=== PATIENT | female | born 1965 | race Caucasian/White ===

== ENCOUNTER 2017-10-24 10:09 | Emergency (ER) | payer OTHER ==
[~2017-10-24] VITALS: Ht 154.9 cm; Wt 53.1 kg
[2017-10-24] MEDS ORDERED: SODIUM CHLORIDE FLUSH 10ML SYR IVF ONE (10:30)
[2017-10-24] MEDS ORDERED: SODIUM CHLORIDE 0.9% 1,000ML IVBOLUS ONE (10:30)
[2017-10-24] MEDS ORDERED: MORPHINE SULFATE 4 MG/ML, 1ML IVPush PRN (10:30)
[2017-10-24] MEDS ORDERED: ONDANSETRON ODT 4 MG PO ONE (10:30)
[2017-10-24] MEDS ORDERED: MORPHINE SULFATE 4 MG/ML, 1ML ONE (10:50)
[2017-10-24] MEDS ORDERED: ONDANSETRON ODT 4 MG ONE (10:50)
[2017-10-24 10:51] LABS: BASOPHILS # (AUTO) 0.02 x10^3/uL (0-0.1); BASOPHILS % (AUTO) 0 % (0-1); EOSINOPHILS # (AUTO) 0.11 x10^3/uL (0-0.4); EOSINOPHILS % (AUTO) 2 % (1-7); LYMPHOCYTES # (AUTO) 1.43 x10^3/uL (1-3.4); LYMPHOCYTES % (AUTO) 19 % (22-44); MD NO; MEAN CORPUSCULAR HEMOGLOBIN 29.5 pg (27.0-34.8); MEAN CORPUSCULAR HGB CONC 33.5 g/dL (32.4-35.8); MEAN PLATELET VOLUME 8.5 fL (7.4-10.4); MONOCYTES # (AUTO) 0.52 x10^3/uL (0.2-0.8); MONOCYTES % (AUTO) 7 % (2-9); NEUTROPHILS % (AUTO) 73 % (42-75); PLATELET COUNT 290 x10^3/uL (130-400); RED BLOOD COUNT 4.37 x10^6/uL (3.82-5.3); RED CELL DISTRIBUTION WIDTH 12.9 % (9.6-15.2)
[2017-10-24 10:57] LABS: MICROSCOPIC AUTO
[2017-10-24 11:03] LABS: CULTURE INDICATED? NO
[2017-10-24 11:03] LABS: ALANINE AMINOTRANSFERASE 47 U/L (12-78); ALBUMIN 4.3 g/dL (3.4-5.0); ANION GAP 10 mmol/L (5-15); CALCIUM 9.2 mg/dL (8.5-10.1); CHLORIDE 107 mmol/L (98-107); CREATININE 0.75 mg/dL (0.55-1.02)
[2017-10-24 11:05] LABS: ALKALINE PHOSPHATASE 80 U/L (45-117); BILIRUBIN,TOTAL 0.6 mg/dL (0.2-1.0); TOTAL PROTEIN 7.8 g/dL (6.4-8.2)
[2017-10-24] MEDS ORDERED: OMNIPAQUE 350 MG/ML, 100ML BOTTLE ONE (11:30)
[2017-10-24] MEDS ORDERED: MAALOX/HYOSCYAMINE/LIDOCAINE 45 ML BTL PO ONE (12:00)
[2017-10-24] MEDS ORDERED: FAMOTIDINE 20 MG TABLET PO ONE (12:00)
[2017-10-24] MEDS ORDERED: MAALOX/HYOSCYAMINE/LIDOCAINE 45 ML BTL ONE (12:05)
[2017-10-24] MEDS ORDERED: FAMOTIDINE 20 MG TABLET ONE (12:05)
[2017-10-24 12:41] VITALS: BP 144/74
== END 2017-10-24 12:43 | disposition home or self-care (01) ==
LOC: ED 11:37
DX: K29.00 Acute gastritis without bleeding (principal)
CPT/HCPCS: 36415; 74177; 80053; 81001; 83690; 85025; 96374; 99285; J7030; Q0162; Q9967

== ENCOUNTER 2017-11-01 20:00 | Emergency (ER) | payer OTHER ==
[~2017-11-01] VITALS: Ht 154.9 cm; Wt 53.5 kg
[2017-11-01 20:04] VITALS: BP 136/83
[2017-11-01 21:02] LABS: MICROSCOPIC INDICATED
[2017-11-01 21:03] LABS: CULTURE INDICATED? YES
[2017-11-01 21:13] LABS: BASOPHILS # (AUTO) 0.02 x10^3/uL (0-0.1); BASOPHILS % (AUTO) 0 % (0-1); EOSINOPHILS % (AUTO) 2 % (1-7); LYMPHOCYTES % (AUTO) 13 % (22-44); MD NO; MEAN CORPUSCULAR HEMOGLOBIN 30.2 pg (27.0-34.8); MEAN CORPUSCULAR HGB CONC 34.2 g/dL (32.4-35.8); MEAN CORPUSCULAR VOLUME 88.6 fL (80-100); MEAN PLATELET VOLUME 8.2 fL (7.4-10.4); MONOCYTES # (AUTO) 0.86 x10^3/uL (0.2-0.8); MONOCYTES % (AUTO) 6 % (2-9); NEUTROPHILS # (AUTO) 10.87 x10^3/uL (1.8-6.8); NEUTROPHILS % (AUTO) 80 % (42-75); PLATELET COUNT 359 x10^3/uL (130-400); RED BLOOD COUNT 4.08 x10^6/uL (3.82-5.3); RED CELL DISTRIBUTION WIDTH 12.4 % (9.6-15.2)
[2017-11-01 21:19] LABS: ALANINE AMINOTRANSFERASE 32 U/L (12-78); ALBUMIN 3.8 g/dL (3.4-5.0); ANION GAP 8 mmol/L (5-15); CALCIUM 8.9 mg/dL (8.5-10.1); CHLORIDE 104 mmol/L (98-107); CREATININE 0.78 mg/dL (0.55-1.02)
[2017-11-01 21:24] LABS: ALKALINE PHOSPHATASE 76 U/L (45-117); BILIRUBIN,TOTAL 0.4 mg/dL (0.2-1.0); TOTAL PROTEIN 7.4 g/dL (6.4-8.2)
[2017-11-01] MEDS ORDERED: CEFTRIAXONE 1,000 MG ONE (21:46)
[2017-11-01] MEDS ORDERED: CEFTRIAXONE 1,000 MG IM ONE (22:00)
== END 2017-11-01 21:59 | disposition home or self-care (01) ==
LOC: ED 21:01
DX: N30.01 Acute cystitis with hematuria (principal)
CPT/HCPCS: 36415; 80053; 81001; 84703; 85025; 87086; 96372; 99284; J0696

== ENCOUNTER → 2017-12-28 | Outpatient (CLI) | payer OTHER | END | disposition home or self-care (01) | LOC: CFH 15:21 | PROVIDERS: ATTEND Nurse Practitioner | DX: E04.9 Nontoxic goiter, unspecified (principal) | CPT/HCPCS: 76536 ==

== ENCOUNTER 2018-02-15 09:10 | Inpatient (IN) | payer OTHER ==
[~2018-02-15] VITALS: Ht 154.9 cm; Wt 55.3 kg
[2018-02-15] MEDS ORDERED: FAMOTIDINE 20 MG/2 ML ONE (09:57)
[2018-02-15] MEDS ORDERED: PROMETHAZINE 25 MG/ML, 1ML ONE (09:57)
[2018-02-15] MEDS ORDERED: MORPHINE SULFATE 4 MG/ML, 1ML ONE ×2 (09:57→10:29)
[2018-02-15] MEDS ORDERED: SODIUM CHLORIDE FLUSH 10ML SYR IVF ONE (10:00)
[2018-02-15] MEDS ORDERED: FAMOTIDINE 20 MG/2 ML IVP ONE (10:00)
[2018-02-15] MEDS ORDERED: PROMETHAZINE 25 MG/ML, 1ML IM ONE (10:00)
[2018-02-15] MEDS ORDERED: MORPHINE SULFATE 4 MG/ML, 1ML IVPush ONE ×2 (10:00→10:30)
[2018-02-15 10:09] LABS: BASOPHILS # (AUTO) 0.04 x10^3/uL (0-0.1); BASOPHILS % (AUTO) 1 % (0-1); EOSINOPHILS # (AUTO) 0.02 x10^3/uL (0-0.4); EOSINOPHILS % (AUTO) 0 % (1-7); LYMPHOCYTES % (AUTO) 12 % (22-44); MD NO; MEAN CORPUSCULAR HGB CONC 33.2 g/dL (32.4-35.8); MEAN CORPUSCULAR VOLUME 87.2 fL (80-100); MEAN PLATELET VOLUME 8.4 fL (7.4-10.4); MONOCYTES # (AUTO) 0.41 x10^3/uL (0.2-0.8); MONOCYTES % (AUTO) 6 % (2-9); NEUTROPHILS # (AUTO) 5.67 x10^3/uL (1.8-6.8); NEUTROPHILS % (AUTO) 82 % (42-75); PLATELET COUNT 331 x10^3/uL (130-400); RED BLOOD COUNT 4.38 x10^6/uL (3.82-5.3); RED CELL DISTRIBUTION WIDTH 12.6 % (9.6-15.2)
[2018-02-15 10:14] LABS: ALBUMIN 4.3 g/dL (3.4-5.0); ANION GAP 9 mmol/L (5-15); CHLORIDE 105 mmol/L (98-107)
[2018-02-15 10:20] LABS: ALANINE AMINOTRANSFERASE 23 U/L (12-78); ALKALINE PHOSPHATASE 75 U/L (45-117); BILIRUBIN,TOTAL 0.9 mg/dL (0.2-1.0); CREATININE 0.78 mg/dL (0.55-1.02); TOTAL PROTEIN 7.6 g/dL (6.4-8.2)
[2018-02-15] MEDS ORDERED: SODIUM CHLORIDE 0.9% 1,000ML IVBOLUS ONE (10:30)
--- NOTE | 2018-02-15 10:41 | NUR ---
LATE ENTRY FOR 10:00 PT PRESENTED TO ED WITH MIDEPIGASTRIC PAIN FOR A FEW DAYS. PT WAS DIAGNOSED WITH HPYLORI 1 WEEK AGO. PT ON MEDICATIONS FOR H PYLORI. PT WITH INCREASING ABD PAIN. ORDERS RECEIVED AND MEDS GIVEN.
--- NOTE | 2018-02-15 10:42 | NUR ---
US AT BEDSIDE. PT WANTING ONLY 2MG MORPHINE INSTEAD OF THE SECOND DOSE OF 2 MG MORPHINE. PT VSS
[2018-02-15 10:54] LABS: CULTURE INDICATED? YES; MICROSCOPIC INDICATED
[2018-02-15] MEDS ORDERED: CLAR500T9 PO (11:22)
[2018-02-15] MEDS ORDERED: METR-142 PO (11:23)
[2018-02-15] MEDS ORDERED: OMEP-110 PO (11:23)
[2018-02-15] MEDS ORDERED: SUCR1TAB PO (11:24)
[2018-02-15] MEDS ORDERED: ENALAPRILAT 1.25 MG/ML, 2ML IVPush PRN (11:30)
[2018-02-15] MEDS ORDERED: MAALOX/HYOSCYAMINE/LIDOCAINE 45 ML BTL PO ONE (11:30)
[2018-02-15] MEDS ORDERED: ONDANSETRON 2MG/ML, 2ML IVPush PRN (11:30)
[2018-02-15] MEDS ORDERED: ACETAMINOPHEN 325 MG TABLET PO PRN (11:30)
--- NOTE | 2018-02-15 11:32 | NUR ---
report given to lisandro roche. pt in radiology at this time.
--- NOTE | 2018-02-15 11:53 | NUR ---
JOHN RN: PATIENT BACK FROM RAD. PATIENT HAD + SYNCOPLE EPISODE IN RAD. HEART MONITOR ESTABLISHED, PATIENT AWAKE TO VOICE BUT SLEEPY. YANNA GOMES AWARE AND STATUS CHANGED TO MED TELE.
--- NOTE | 2018-02-15 12:30 | NUR ---
PT ALERT AND ORIENTED. REPORT WILL BE CALLED. VSS
--- NOTE | 2018-02-15 12:55 | NUR ---
REPORT GIVEN TO SHARON WIGGINS. PT WILL THEN BE TRANSPORTED TO FLOOR.
[2018-02-15 13:18] VITALS: BP 110/68
[2018-02-15] MEDS: NS + 20MEQ KCL 1,000 ML IV SCH (14:22)
[2018-02-15] MEDS: PANTOPRAZOLE 40 MG IV IVPush SCH (14:22)
[2018-02-15 14:30] VITALS: BP 110/61
[2018-02-15] MEDS: metroNIDAZOLE 500 MG TABLET PO SCH ×2 (15:48→20:57)
[2018-02-15] MEDS: SUCRALFATE 1 GM/10 ML UDC PO SCH ×2 (15:48→20:57)
[2018-02-15 19:10] VITALS: BP 112/74
[2018-02-15] MEDS: CLARITHROMYCIN 500 MG TABLET PO SCH (20:57)
[2018-02-16 02:41] VITALS: BP 100/63
[2018-02-16] MEDS: NS + 20MEQ KCL 1,000 ML IV SCH ×2 (02:45→16:27)
[2018-02-16 06:29] LABS: BASOPHILS # (AUTO) 0.04 x10^3/uL (0-0.1); BASOPHILS % (AUTO) 1 % (0-1); EOSINOPHILS # (AUTO) 0.11 x10^3/uL (0-0.4); EOSINOPHILS % (AUTO) 2 % (1-7); LYMPHOCYTES % (AUTO) 29 % (22-44); MD NO; MEAN CORPUSCULAR HEMOGLOBIN 30.2 pg (27.0-34.8); MEAN CORPUSCULAR HGB CONC 34.5 g/dL (32.4-35.8); MEAN CORPUSCULAR VOLUME 87.5 fL (80-100); MEAN PLATELET VOLUME 8.2 fL (7.4-10.4); MONOCYTES # (AUTO) 0.54 x10^3/uL (0.2-0.8); MONOCYTES % (AUTO) 11 % (2-9); NEUTROPHILS # (AUTO) 2.72 x10^3/uL (1.8-6.8); NEUTROPHILS % (AUTO) 57 % (42-75); PLATELET COUNT 238 x10^3/uL (130-400); RED CELL DISTRIBUTION WIDTH 12.3 % (9.6-15.2)
[2018-02-16 06:35] LABS: ALANINE AMINOTRANSFERASE 19 U/L (12-78); ALBUMIN 3.1 g/dL (3.4-5.0); ANION GAP 4 mmol/L (5-15); CALCIUM 8.3 mg/dL (8.5-10.1); CHLORIDE 112 mmol/L (98-107)
[2018-02-16 06:37] LABS: ALKALINE PHOSPHATASE 55 U/L (45-117); BILIRUBIN,TOTAL 0.6 mg/dL (0.2-1.0); TOTAL PROTEIN 5.9 g/dL (6.4-8.2)
[2018-02-16] MEDS: PANTOPRAZOLE 40 MG IV IVPush SCH (07:21)
[2018-02-16] MEDS: SUCRALFATE 1 GM/10 ML UDC PO SCH ×4 (07:21→20:51)
[2018-02-16 07:44] VITALS: BP 112/71
[2018-02-16] MEDS: CLARITHROMYCIN 500 MG TABLET PO SCH ×2 (08:38→20:51)
[2018-02-16] MEDS: metroNIDAZOLE 500 MG TABLET PO SCH ×3 (08:38→20:51)
[2018-02-16 12:50] VITALS: BP 146/76
[2018-02-16] MEDS ORDERED: FENTANYL PF 100 MCG/2ML ONE (13:37)
[2018-02-16] MEDS ORDERED: MIDAZOLAM 1 MG/ML, 2ML ONE (13:37)
[2018-02-16] MEDS ORDERED: PROPOFOL 10 MG/ML, 20ML ONE (13:38)
[2018-02-16] MEDS ORDERED: MEPERIDINE/PF 25MG/0.5ML IVPush PRN (14:00)
[2018-02-16] MEDS ORDERED: FENTANYL PF 100 MCG/2ML IV PRN (14:00)
[2018-02-16] MEDS ORDERED: ACETAMINOPHEN 325 MG TABLET PO PRN (14:00)
[2018-02-16] MEDS ORDERED: hydrALAzine 20 MG/ML, 1ML IV PRN (14:00)
[2018-02-16] MEDS ORDERED: HYDROmorphone 2 MG/ML, 1ML IVPush PRN (14:00)
[2018-02-16] MEDS ORDERED: HALOPERIDOL 5 MG/ML IV PRN (14:00)
[2018-02-16] MEDS ORDERED: OXYcodone 5 MG/5 ML ORAL.SOL UDC PO PRN (14:00)
[2018-02-16] MEDS ORDERED: PROMETHAZINE 25 MG/ML, 1ML IV PRN (14:00)
[2018-02-16 18:51] VITALS: BP 122/78
[2018-02-17 00:49] VITALS: BP 112/59
[2018-02-17] MEDS: NS + 20MEQ KCL 1,000 ML IV SCH (05:03)
[2018-02-17 05:42] LABS: BASOPHILS # (AUTO) 0.03 x10^3/uL (0-0.1); BASOPHILS % (AUTO) 1 % (0-1); EOSINOPHILS # (AUTO) 0.24 x10^3/uL (0-0.4); EOSINOPHILS % (AUTO) 5 % (1-7); LYMPHOCYTES # (AUTO) 1.45 x10^3/uL (1-3.4); LYMPHOCYTES % (AUTO) 31 % (22-44); MD NO; MEAN CORPUSCULAR HEMOGLOBIN 29.9 pg (27.0-34.8); MEAN CORPUSCULAR HGB CONC 34.3 g/dL (32.4-35.8); MEAN CORPUSCULAR VOLUME 87.1 fL (80-100); MEAN PLATELET VOLUME 8.7 fL (7.4-10.4); MONOCYTES # (AUTO) 0.48 x10^3/uL (0.2-0.8); MONOCYTES % (AUTO) 10 % (2-9); NEUTROPHILS # (AUTO) 2.47 x10^3/uL (1.8-6.8); NEUTROPHILS % (AUTO) 53 % (42-75); PLATELET COUNT 242 x10^3/uL (130-400); RED BLOOD COUNT 3.86 x10^6/uL (3.82-5.3); RED CELL DISTRIBUTION WIDTH 12.1 % (9.6-15.2)
[2018-02-17 06:12] LABS: CHLORIDE 111 mmol/L (98-107)
[2018-02-17 06:17] LABS: ANION GAP 7 mmol/L (5-15); CALCIUM 8.9 mg/dL (8.5-10.1); CREATININE 0.56 mg/dL (0.55-1.02)
[2018-02-17] MEDS: PANTOPRAZOLE 40 MG IV IVPush SCH (07:49)
[2018-02-17] MEDS: SUCRALFATE 1 GM/10 ML UDC PO SCH ×3 (07:49→15:51)
[2018-02-17 08:07] VITALS: BP 131/81
[2018-02-17] MEDS: CLARITHROMYCIN 500 MG TABLET PO SCH (09:21)
[2018-02-17] MEDS: metroNIDAZOLE 500 MG TABLET PO SCH ×2 (09:21→15:51)
[2018-02-17 12:56] VITALS: BP 108/71
== END 2018-02-17 16:53 | disposition home or self-care (01) | DRG 392 ==
LOC: ED 10:42 → EDIP 10:56 → 4WST 13:06 → DCLOUNGE 02-17 16:39
PROVIDERS: ADMIT Hospitalist; ATTEND Hospitalist
PROC: BD11YZZ Fluoroscopy of Esophagus using Other Contrast (ICD-10-PCS; 2018-02-15)
PROC: 0DB68ZX Excision of Stomach, Via Natural or Artificial Opening Endoscopic, Diagnostic (ICD-10-PCS; principal; 2018-02-16 15:30)
DX: K29.70 Gastritis, unspecified, without bleeding (principal); B96.81 Helicobacter pylori [H. pylori] as the cause of diseases classified elsewhere; G89.29 Other chronic pain; Z53.20 Procedure and treatment not carried out because of patient's decision for unspecified reasons; Z98.51 Tubal ligation status; Z87.440 Personal history of urinary (tract) infections; Z87.442 Personal history of urinary calculi; Z82.49 Family history of ischemic heart disease and other diseases of the circulatory system; Z83.3 Family history of diabetes mellitus
CPT/HCPCS: 36415; 74220; 99285; J3490; 76700; 80048; 80053; 81001; 83690; 85025; 87086; 88305; 93306; 93880; 96361; 96372; 96374; 96375; G0378; J2250; J2550; J2704; J3010; J3480; C9113; J7030